=== PATIENT | female | born 1985 | race Caucasian/White ===

== ENCOUNTER 2024-09-14 10:19 | Outpatient (OUT) | payer OTHER, SELFPAY ==
--- NOTE | 2024-09-14 10:33 | XR_ITS ---
[facility] [id number] Patient Name: SABINA SMITH MRN: [id number] date: 1985 Sex: F Assigned Patient Location: [facility] Current Patient Location: Accession/Order Number: [id number] Exam Date: 09/14/2024 10:42 Report Date: 09/15/2024 07:47 At the request of: BEE JIMENEZ Procedure: XR ankle RT min 3V PROCEDURE: XR ankle RT min 3V HISTORY: Swelling And Pain Of Ankle ; no known injury COMPARISON: None. FINDINGS: BONES:No fracture, dislocation, bone lesion. Uniform joint spacing with smooth articular surface. Small degenerative enthesophyte at tip of lateral malleolus. Small calcaneal plantar spur. SOFT TISSUES:No visible soft tissue swelling. EFFUSION:None visible. OTHER: Negative. XR/XR ankle RT min 3V IMPRESSION: 1. Minimal degenerative changes. 2. No acute abnormality. Electronically authenticated by: ROSIO GOMEZ Date: 09/15/2024 07:47
== END 2024-09-14 10:20 | disposition home or self-care (01) ==
LOC: RAD 10:25
PROVIDERS: Visit Provider Nurse Practitioner
DX: M25.571 Pain in right ankle and joints of right foot (principal)
CPT/HCPCS: 73610